=== PATIENT | male | born 1945 | race African-American/Black ===

== ENCOUNTER 2017-04-09 14:03 | Emergency (ER) | payer SELFPAY ==
[~2017-04-09] VITALS: Ht 170.2 cm; Wt 79.0 kg
[~2017-04-09 14:03] MED LIST: HYD25 PO; LOSA100T7 PO; METO-448 PO
[2017-04-09 14:09] VITALS: Ht 170.2 cm; Wt 79.0 kg
== END 2017-04-09 14:15 | disposition left against medical advice (07) ==
LOC: E/R 14:03
DX: Z53.21 Procedure and treatment not carried out due to patient leaving prior to being seen by health care provider (principal)

== ENCOUNTER 2017-04-19 14:13 | Emergency (ER) | payer OTHER ==
[~2017-04-19] VITALS: Ht 172.7 cm; Wt 78.0 kg
[2017-04-19 14:16] VITALS: Ht 172.7 cm; Wt 78.0 kg
[2017-04-19 15:31] VITALS: BP 181/97
[2017-04-19] MEDS ORDERED: [UNRECOGNIZED DRUG - CODE] MC (15:58)
--- NOTE | 2017-04-19 16:21 | ERD ---
ER Documentation Chief Complaint Date/Time DATE: 04/19/17 TIME: 16:17 Chief Complaint htn HPI Patient is a 71-year-old male with hypertension who presents with hypertension. He says "my blood pressure medicines are not working". He said that he was taking hydrochlorothiazide, metoprolol, losartan, and clonidine although he has been mixing and matching these and not taking them exactly as prescribed. He said that today his blood pressure was high but is concerned about taking all of his medicines and making his blood pressure go low so he did not take all the medicines. He came to the ER. He denies symptoms. Upon review of old medical records the patient has multiple visits to the ER for similar complaints. He does not currently have a primary doctor. ROS All systems reviewed and are negative except as per history of present illness. Medications Home Meds Active Scripts Blood Pressure Test Kit-Medium (BLOOD PRESSURE CUFF MONITOR) 1 Each Kit, 1 EACH MC, #1 Prov:MAC HERNANDEZ MD 04/19/17 Hydrochlorothiazide* (Hydrochlorothiazide*) 25 Mg Tab, 25 MG PO DAILY, #30 TAB Prov:LURDES ABERNATHY MD 05/14/16 Losartan Potassium* (Losartan Potassium*) 100 Mg Tablet, 100 MG PO DAILY, #30 TAB Prov:LURDES ABERNATHY MD 05/14/16 Reported Medications Metoprolol Tartrate* (Lopressor*) 25 Mg Tab, 25 MG PO QHS, #60 TAB 08/12/16 Allergies Allergies: Coded Allergies: tramadol (Verified Allergy, Severe, "UNCONSCIOUS", 08/12/16) amlodipine (Verified Allergy, Unknown, THROAT SWELLING, 08/12/16) benazepril (Verified Allergy, Unknown, ANGIOEDEMA, 08/12/16) PMhx/Soc Medical and Surgical Hx: pt denies Surgical Hx History of Surgery: No Anesthesia Reaction: No Hx Neurological Disorder: No Hx Respiratory Disorders: No Hx Cardiac Disorders: Yes (HTN) Hx Psychiatric Problems: No Hx Miscellaneous Medical Probl: No Hx Alcohol Use: Yes (OCCASIONAL) Hx Substance Use: Yes (marijuana) Hx Tobacco Use: No Smoking Status: Never smoker FmHx Family History: No diabetes Physical Exam Vitals Vital Signs Date Time Temp Pulse Resp B/P Pulse Ox O2 Delivery O2 Flow Rate FiO2 04/19/17 15:31 181/97 7/25/17 14:48 199/95 04/19/17 14:16 97.8 89 18 191/118 99 Physical Exam Const: No acute distress Head: Atraumatic Eyes: Normal Conjunctiva ENT: Normal External Ears, Nose and Mouth. Neck: Full range of motion..~ No meningismus. Resp: Clear to auscultation bilaterally Cardio: Regular rate and rhythm, no murmurs Abd: Soft, non tender, non distended. Normal bowel sounds Skin: No petechiae or rashes Back: No midline or flank tenderness Ext: No cyanosis, or edema Neur: Awake and alert Psych: Normal Mood and Affect Procedures/MDM Patient is a 71-year-old male with hypertension who presents with acute hypertension. At this point there is no sign of hypertensive emergency or hypertensive urgency. The patient needs to take his blood pressure medicines as directed. I also told him that it is important to follow-up with the primary doctor so that he could have his blood pressure managed correctly. The patient will be discharged without further workup. I believe outpatient management is appropriate. Departure Diagnosis: Primary Impression: Hypertension Hypertension type: essential hypertension Qualified Code: I10 - Essential hypertension Condition: Fair Patient Instructions: High Blood Pressure (Hypertension) Referrals: Your doctor Additional Instructions: Call your primary care doctor TOMORROW for an appointment during the next 1-2 days.See the doctor sooner or return here if your condition worsens before your appointment time. MAC HERNANDEZ MD Apr 19, 2017 16:21
== END 2017-04-19 16:02 | disposition home or self-care (01) ==
LOC: FTE 14:13
DX: I10 Essential (primary) hypertension (principal)
CPT/HCPCS: 99283

== ENCOUNTER 2017-04-26 17:52 | Emergency (ER) | payer OTHER ==
[~2017-04-26] VITALS: Ht 165.1 cm; Wt 77.5 kg
[~2017-04-26 17:52] MED LIST changes: +[UNRECOGNIZED DRUG - CODE] MC
[2017-04-26 17:57] VITALS: Ht 165.1 cm; Wt 77.5 kg
[2017-04-26] MEDS ORDERED: METO50TA16 PO (19:57)
[2017-04-26 20:23] VITALS: BP 167/105; PULSE 57; RESP 16
--- NOTE | 2017-04-26 21:07 | ERD ---
ER Documentation Chief Complaint Date/Time DATE: 04/26/17 TIME: 21:06 Chief Complaint HTN , FEELS DIZZY HPI Patient is a 71-year-old male with hypertension who presents saying "my medicines are not working". The patient has an appointment scheduled on May 11 with a bit his blood pressure was high and he felt dizzy so he came to the ER. He was seen on April 19 for the same. He denies chest pain. He is taking metoprolol 25 mg daily as well as other blood pressure medications. Upon review of old medical records this is the patient's 14th visit to the ER since 2012. ROS All systems reviewed and are negative except as per history of present illness. Medications Home Meds Active Scripts Metoprolol Succinate* (Toprol XL*) 50 Mg Tab.er.24h, 50 MG PO DAILY, #20 TAB Prov:MAC HERNANDEZ MD 04/26/17 Blood Pressure Test Kit-Medium (BLOOD PRESSURE CUFF MONITOR) 1 Each Kit, 1 EACH MC, #1 Prov:MAC HERNANDEZ MD 04/19/17 Hydrochlorothiazide* (Hydrochlorothiazide*) 25 Mg Tab, 25 MG PO DAILY, #30 TAB Prov:LURDES ABERNATHY MD 05/14/16 Losartan Potassium* (Losartan Potassium*) 100 Mg Tablet, 100 MG PO DAILY, #30 TAB Prov:LURDES ABERNATHY MD 05/14/16 Reported Medications Metoprolol Tartrate* (Lopressor*) 25 Mg Tab, 25 MG PO QHS, #60 TAB 08/12/16 Allergies Allergies: Coded Allergies: tramadol (Verified Allergy, Severe, "UNCONSCIOUS", 08/12/16) amlodipine (Verified Allergy, Unknown, THROAT SWELLING, 08/12/16) benazepril (Verified Allergy, Unknown, ANGIOEDEMA, 08/12/16) PMhx/Soc History of Surgery: No Anesthesia Reaction: No Hx Neurological Disorder: No Hx Respiratory Disorders: No Hx Cardiac Disorders: Yes (HTN) Hx Psychiatric Problems: No Hx Miscellaneous Medical Probl: No Hx Alcohol Use: Yes (OCCASIONAL) Hx Substance Use: Yes (marijuana) Hx Tobacco Use: No Smoking Status: Never smoker FmHx Family History: No diabetes Physical Exam Vitals Vital Signs Date Time Temp Pulse Resp B/P Pulse Ox O2 Delivery O2 Flow Rate FiO2 04/26/17 20:23 57 16 167/105 99 Room Air 04/26/17 17:57 97.6 72 18 185/111 99 Physical Exam Const: No acute distress Head: Atraumatic Eyes: Normal Conjunctiva ENT: Normal External Ears, Nose and Mouth. Neck: Full range of motion..~ No meningismus. Resp: Clear to auscultation bilaterally Cardio: Regular rate and rhythm, no murmurs Abd: Soft, non tender, non distended. Normal bowel sounds Skin: No petechiae or rashes Back: No midline or flank tenderness Ext: No cyanosis, or edema Neur: Awake and alert, no slurred speech, cranial nerves II through XII are intact Psych: Normal Mood and Affect Results 24 hrs Current Medications Medications (Trade) Dose Ordered Sig/Daniela Route PRN Reason Start Time Stop Time Status Last Admin Dose Admin Clonidine (Catapres) 0.2 mg ONCE ONCE PO 04/26/17 20:00 04/26/17 20:01 DC 04/26/17 20:03 Procedures/MDM Patient is a 71-year-old male with hypertension who presents with hypertension. At this point I doubt stroke or true hypertensive emergency. The patient was given clonidine by mouth for his blood pressure. I believe outpatient management is appropriate. I told him that we can double his metoprolol to 50 mg daily but that he needs a follow-up with a primary doctor for further blood pressure management. He can return for any worsening symptoms. I do not believe he requires further workup or admission to the hospital at this time. Departure Diagnosis: Primary Impression: Dizziness Additional Impression: Hypertension Hypertension type: essential hypertension Qualified Code: I10 - Essential hypertension Condition: Fair Patient Instructions: High Blood Pressure (Hypertension), Dizziness, Unk Cause Referrals: Your doctor Additional Instructions: Call your primary care doctor TOMORROW for an appointment during the next 1-2 days.See the doctor sooner or return here if your condition worsens before your appointment time. MAC HERNANDEZ MD Apr 26, 2017 21:07
== END 2017-04-26 20:29 | disposition home or self-care (01) ==
LOC: E/R 17:52
DX: R42 Dizziness and giddiness (principal)
CPT/HCPCS: 99283

== ENCOUNTER 2017-11-30 22:17 | Emergency (ER) | END 2017-12-01 00:34 | disposition left against medical advice (07) ==

== ENCOUNTER 2017-12-02 09:58 | Emergency (ER) | END 2017-12-02 14:55 | disposition home or self-care (01) ==

== ENCOUNTER 2018-01-12 05:41 | Inpatient (IN) | END 2018-01-20 17:33 | disposition home health service (06) | DRG 25 ==